=== PATIENT | female | born 1975 | race Two or more races ===

== ENCOUNTER 2023-07-19 14:24 | Outpatient (OUT) | payer BC, SELFPAY ==
--- NOTE | 2023-07-19 | US_ITS ---
The [address] [address] Patient Name: RACHEL KEBEDE MRN: [id number] date: 1975 Sex: F Assigned Patient Location: US Current Patient Location: US Accession/Order Number: [id number] Exam Date: 07/19/2023 14:26 Report Date: 07/19/2023 15:19 At the request of: CHARI DUMONT Procedure: US pelvis w/ transvaginal EXAM: US pelvis w/ transvaginal HISTORY: PELVIC PAIN COMPARISON: None. TECHNIQUE: Real-time transabdominal and transvaginal imaging of the pelvis. Findings: The uterus is not visualized consistent with prior hysterectomy. The right and left ovaries measure 2.4 x 1.8 x 2.6 and 2.7 x 1.8 x 1.5 cm. There are unremarkable bilaterally. No adnexal mass or free pelvic fluid. US/US pelvis w/ transvaginal IMPRESSION: 1. Surgically absent uterus. Electronically authenticated by: DIEGO ALMARAZ Date: 07/19/2023 15:19
== END 2023-07-19 14:25 | disposition home or self-care (01) ==
LOC: US 14:24
PROVIDERS: PCP Family Medicine; Visit Provider Physician Assistant
DX: R10.2 Pelvic and perineal pain (principal)
CPT/HCPCS: 76830; 76856

== ENCOUNTER 2023-11-28 21:09 | Outpatient (REF) | payer BC, SELFPAY ==
[2023-12-01 17:09] LABS: Age Gdln ACOG Testing Note (.); HPV Aptima Negative (Negative); IGP, Aptima HPV, rfx 16/18,45 Note (.)
== END 2023-11-28 21:10 | disposition home or self-care (01) ==
LOC: LAB 21:09
PROVIDERS: PCP Family Medicine; Visit Provider Physician Assistant
DX: Z01.419 Encounter for gynecological examination (general) (routine) without abnormal findings (principal)
CPT/HCPCS: 87624; G0145

== ENCOUNTER 2025-04-25 15:18 | Outpatient (REF) | payer BC, SELFPAY ==
--- OUTSIDE RECORDS SUMMARY | 2025-04-25 14:00 | XMS_ITS | Encounter Summary ---
Author Organization [facility] Address [address] [place] [address] Care Team Providers Care Hospital Nurse Name Role Phone Cruz Anderson MD Primary Care Provider [phone] Cruz Anderson MD Unavailable [phone] Reason for Visit * Reason Comments Well Women Visit Encounter Details Date Type Department Care Team (Late st Contact Info) Description 04/25/2025 2:00 PM EDT Office Visit [facility] [address] [facility] [place] [address] Angelica Ellis PA [address] [place], [facility]11 Well woman exam with routine gynecological exam; Breast cancer screening by mammogram; Postmenopausal state; Encounter for weight management Social History Tobacco Use Types Packs/Day Years Used Date Smoking Tobacco: Never Smokeless Tobacco: Never Alcohol Use Standard Drinks/Week Comments Yes 5 (1 standard drink = 0.6 oz pure alcohol) 1-2 drinks 2-3x a week in the past year, Caffeine intake: 1-2 cups per day B1300 Health Literacy Answer Date Recor ded How often do you need to hav e someone help you when you read instructions, pamphlets, or other written material from your doctor or pharmacy? Never 10/31/2024 Humiliation, Afraid, Rape, and Kick questionnair e Answer Date Recorded Within the last year, have y ou been afraid of your partner or ex-partner? No 09/27/2023 Within the last year, have y ou been humiliated or emotionally abused in other ways by your partner or ex-partner? No Within the last year, have y ou been kicked, hit, slapped, or otherwise physically hurt by your partner or ex-partner? No 09/27/2023 Within the last year, have y ou been raped or forced to have any kind of sexual activity by your partner or ex-partner? No 09/27/2023 Social Connection and Isolat ion Panel [NHANES] Answer Date Recorded In a typical week, how many times do you talk on the phone with family, friends, or neighbors? More than three times a week 10/31/2024 How often do you get togethe r with friends or relatives? More than three times a week 10/31/2024 How often do you attend chur or gnosticism services? Never 10/31/2024 Do you belong to any clubs o r organizations such as baptism groups, unions, fraternal or athletic groups, or school groups? Yes 10/31/2024 How often do you attend meet ings of the clubs or organizations you belong to? More than 4 times per year 10/31/2024 Are you , , di vorced, , never , or living with a partner? 10/31/2024 AUDIT-C Answer Date Recorded Q1: How often do you have a drink containing alc ohol? 2-3 times a week 10/31/2024 Q2: How many drinks containi ng alcohol do you have on a typical day when you are drinking? 1 or 2 10/31/2024 Q3: How often do you have si x or more drinks on one occasion? Less than monthly 10/31/2024 Overall Financial Resource Strain (CARDIA) Answe r Date Recorded How hard is it for you to pa y for the very basics like food, housing, medical care, and heating? Not very hard 10/31/2024 PHQ-2 Answer Date Recorded Patient Health Questionnaire-2 Score 0 01/15/2025 [facility] - Occupational Stress Questionnaire Answer Date Recorded Do you feel stress - tense, restless, nervous, or anxious, or unable to sleep at night because your mind is troubled all the time - these days? To some extent 10/31/2024 Exercise Vital Sign Answer Date Recorde d On average, how many days pe r week do you engage in moderate to strenuous exercise (like a brisk walk)? 3 days 10/31/2024 On average, how many minutes do you engage in exercise at this level? 40 min 10/31/2024 Hunger Vital Sign Answer Date Recorded Within the past 12 months, y ou worried that your food would run out before you got the money to buy more. Never true 10/31/19 25 Within the past 12 months, t he food you bought just didn't last and you didn't have money to get more. Never true 10/31/2024 PRAPARE - Transportation Answer Date Re corded In the past 12 months, has l ack of transportation kept you from medical appointments or from getting medications? No 10/04 In the past 12 months, has l ack of transportation kept you from meetings, work, or from getting things needed for daily living? No 10/31/2024 Housing Stability Vital Sign Answer Jus e Recorded In the last 12 months, was t here a time when you were not able to pay the mortgage or rent on time? No 09/27/2023 In the last 12 months, how many places have you lived? 1 09/27/2023 In the last 12 months, was t here a time when you did not have a steady place to sleep or slept in a senior living (including now)? No 09/27/2023 Housing Stability Vital Sign Answer Jus e Recorded In the last 12 months, was t here a time when you were not able to pay the mortgage or rent on time? No 10/31/2024 Number of Times Moved in the Last Year Not on fi le 10/31/2024 At any time in the past 12 m [facility], were you homeless or living in a senior living (including now)? No 10/31/2024 Comments No Sex and Gender Information Value Date Recorded Sex Assigned at Not on file Legal Sex Female 6:51 PM EDT Gender Identity Not on file Sexual Orientation Straight 03/27/2023 6: 09 PM EDT documented as of this encounter Last Filed Vital Signs Vital Sign Reading Time Taken Comments Blood Pressure 120/78 04/25/2025 2:11 PM EDT Pulse - - Temperature - - Respiratory Rate - - Oxygen Saturation - - Inhaled Oxygen Concentration - - Weight 89.4 kg (197 lb 1.9 oz) 04/25/2025 2:11 P M EDT Height - - Body Mass Index 32.8 01/15/2025 11:26 AM EDT documented in this encounter Progress Notes * EZRA Godoy - 04/25/2025 2:00 PM EDT Reason for Appointment: Patient ID: Octavia Guzman is a 50 y.o. female who presents for [facility] Women Visit Patient presents today for Annual Exam. MEDICATIONS Current Outpatient Medications Medication Instructions llyutiloba-nfmmdlucwkdig-gdoqdjcc 50-325-40 MG tablet 1-2 tabs po daily prn headache meloxicam (MOBIC) 15 mg, Oral, Daily metFORMIN XR (GLUCOPHAGE-XR) 500 mg, Oral, Daily with evening meal, Do not crush, chew, or split. methocarbamol (ROBAXIN) 750 mg, Oral, 3 times daily PRN omeprazole (PRILOSEC) 20 mg, Oral, 2 times daily before meals topiramate (TOPAMAX) 50 mg, Oral, 2 times daily ALLERGIES Allergies Allergen Reactions Augmentin [Amoxicillin-Pot Clavulanate] Other Brunilda vaginitis PROBLEMS Active Ambulatory Problems Diagnosis Date Noted Bilateral hand pain 03/21/2023 Numbness and tingling in both hands 03/21/2023 Carpal tunnel syndrome, bilateral 04/27/2023 Resolved Ambulatory Problems Diagnosis Date Noted No Resolved Ambulatory Problems Past Medical History: Diagnosis Date Arthritis CTS (carpal tunnel syndrome) GERD (gastroesophageal reflux disease) Menorrhagia Obesity Seasonal allergies Tennis elbow HISTORY PAST MEDICAL HISTORY SOCIAL HISTORY Past Medical History: Diagnosis Date Arthritis CTS (carpal tunnel syndrome) GERD (gastroesophageal reflux disease) Menorrhagia Obesity Seasonal allergies Tennis elbow Social History Tobacco Use Smoking status: Never Smokeless tobacco: Never Vaping Use Vaping status: Never Used Substance Use Topics Alcohol use: Yes Alcohol/week: 5.0 standard drinks of alcohol Types: 5 Glasses of wine per week Comment: 1-2 drinks 2-3x a week in the past year, Caffeine intake: 1-2 cups per day Drug use: Never FAMILY HISTORY Family History Problem Relation Name Age of Onset Hypertension Mother [place] Arrhythmia Mother [place] Parkinsonism Father Diabetes Brother Ramon Cancer Maternal Grandmother Tori SURGICAL HISTORY Past Surgical History: Procedure Laterality Date APPENDECTOMY CARPAL TUNNEL RELEASE Right 08/19/2023 Dr. Dylan RAMIREZ CARPAL TUNNEL RELEASE Left 09/02/2023 Dr. Dylan RAMIREZ ENDOMETRIAL ABLATION 06/22/2022 HAND SURGERY Left 09/19/2024 L basilar thumb interpositional arhtroplasty- MTP HYSTERECTOMY 11/03/2022 MOUTH SURGERY Implant put in mouth SALPINGECTOMY Bilateral 07/02/2022 REVIEW OF SYSTEMS Review of Systems: Review of Systems Constitutional: Negative. HENT: Negative. Eyes: Negative. Respiratory: Negative. Cardiovascular: Negative. Gastrointestinal: Negative. Genitourinary: Negative. Musculoskeletal: Negative. Skin: Negative. Neurological: Negative. All other systems reviewed and are negative. Hematological: Negative. Endocrine: Negative. Allergic/Immunologic: Negative. OBJECTIVE Objective: Physical Exam Constitutional: Appearance: Normal appearance. Genitourinary: Right Adnexa: not tender and no mass present. Left Adnexa: not tender and no mass present. Cervix is absent. Uterus is absent. Breasts: Breasts are soft. Right: Normal. Left: Normal. HENT: Head: Normocephalic. Nose: Nose normal. Mouth/Throat: Mouth: Mucous membranes are moist. Cardiovascular: Rate and Rhythm: Normal rate. Pulmonary: Effort: Pulmonary effort is normal. Abdominal: General: Bowel sounds are normal. Palpations: Abdomen is soft. Musculoskeletal: General: Normal range of motion. Cervical back: Normal range of motion. Neurological: General: No focal deficit present. Mental Status: She is alert. Skin: General: Skin is warm and dry. Psychiatric: Mood and Affect: Mood normal. Vitals and nursing note reviewed. Exam conducted with a profiling machine set up operator present. Vitals: Estimated body mass index is 32.8 kg/m?? as calculated from the following: Height as of 01/15/25: 5' 5 . Weight as of this encounter: 197 lb 1.9 oz. BP: 120/78 No LMP recorded. Patient has had a hysterectomy. ASSESSMENT & PLAN ICD-10-CM 1. Well woman exam with routine gynecological exam Z01.419 THIN PREP TIS PAP AND HR HPV DNA 2. Breast cancer screening by mammogram Z12.31 Bilateral screening mammogram Bilateral screening mammogram 3. Postmenopausal state Z78.0 DEXA bone density 4. Encounter for weight management Z76.89 metFORMIN XR (Glucophage-XR) 500 MG 24 hr tablet Documented by EZRA Godoy on behalf of: EZRA Godoy documented in this encounter Plan of Treatment Upcoming Encounters Date Type Department Care Team (Late st Contact Info) Description 05/16/2025 8:30 AM EDT Office Visit [facility] [address] [place] [address] Angelica Ellis PA [address] [place] [address] Scheduled Orders Name Type Priority Associated Diagnoses Orde r Schedule Bilateral screening mammogram Imaging Routine Breast cancer screening by mammogram Expected: 04/25/2025, Expires: 06/26/2026 DEXA bone density Imaging Routine Postmenopausal state Expected: 04/25/2025 (Approximate), Expires: 04/25/2026 THIN PREP TIS PAP AND HR HPV DNA Pathology and Cytology Routine Well woman exam with routine gynecological exam Ordered: 04/25/2025 documented as of this encounter Visit Diagnoses Diagnosis Well woman exam with routine gynecological exam Routine gynecological examination Breast cancer screening by mammogram Postmenopausal state Asymptomatic postmenopausal status (age-related) (natural) Encounter for weight management documented in this encounter Care Teams Hospital Nurse Relationship Specialty Start Date End Date Cruz Anderson MD [address] [place] [address] PCP - General Family Medicine 03/18/23 Cruz Anderson MD [address] [place] [address] PCP - Diane Leal 12/01/24 documented as of this encounter
--- OUTSIDE RECORDS SUMMARY | 2025-04-25 15:22 | XMS_ITS | Encounter Summary ---
Author Organization [facility] Address [address] [facility] [place] [address] Care Team Providers Care Guest Relations Receptionist Name Role Phone Estefania Blackwell NP Unavailable Cruz Anderson MD Primary Care Provider Cruz Anderson MD Unavailable [phone] Cruz Anderson MD Unavailable [phone] Encounter Details Date Type Department Care Team (Late st Contact Info) Description 07/29/2023 Abstract [facility] [address] [facility] [address] [place] [address] Dylan Bates, DO [address] [facility] [place] [address] Social History Tobacco Use Types Packs/Day Years Used Date Smoking Tobacco: Never Smokeless Tobacco: Never Alcohol Use Standard Drinks/Week Comments Yes 5 (1 standard drink = 0.6 oz pure alcohol) 1-2 drinks 2-3x a week in the past year, Caffeine intake: 1-2 cups per day Comments Unknown Sex and Gender Information Value Date Recorded Sex Assigned at Not on file Legal Sex Female 6:51 PM EDT Gender Identity Not on file Sexual Orientation Straight 03/27/2023 6: 09 PM EDT COVID-19 Exposure Response Date Recorded In the last 10 days, have yo u been in contact with someone who was confirmed or suspected to have Coronavirus/COVID-19? No / Unsure 07/28/2023 10:10 AM EDT documented as of this encounter Plan of Treatment Upcoming Encounters Date Type Department Care Team (Late st Contact Info) Description 05/16/2025 8:30 AM EDT Office Visit [facility] OB [address] [facility] [place] [address] Angelica Ellis PA [address] [place] [address] documented as of this encounter Visit Diagnoses Not on filedocumented in this encounter Care Teams Guest Relations Receptionist Relationship Specialty Start Date End Date Estefania Blackwell, BREAKER OPERATOR [address] [place] [address] PCP - [employer] [employer] 01/01/22 Cruz Anderson MD [address] [place] [address] PCP - General Family Medicine 03/18/23 Cruz Anderson MD [address] [place] [address] PCP - [employer] 12/02/23 Cruz Anderson MD [address] [place] [address] PCP - [employer] 12/01/24 documented as of this encounter
--- OUTSIDE RECORDS SUMMARY | 2025-04-25 15:22 | XMS_ITS | Encounter Summary ---
Author Organization [facility] Address [address] [facility] [place] [address] Care Team Providers Care Production Machine Shop Supervisor Name Role Phone Estefania Blackwell NP Unavailable [phone] Cruz Anderson MD Primary Care Provider Cruz Anderson MD Unavailable [phone] Cruz Anderson MD Unavailable [phone] Encounter Details Date Type Department Care Team (Late st Contact Info) Description 09/23/2023 Abstract [facility] [address] [place] [id number] Madison Miranda RN [address] [place], [place] Social History Tobacco Use Types Packs/Day Years Used Date Smoking Tobacco: Never Smokeless Tobacco: Never Alcohol Use Standard Drinks/Week Comments Yes 5 (1 standard drink = 0.6 oz pure alcohol) 1-2 drinks 2-3x a week in the past year, Caffeine intake: 1-2 cups per day Humiliation, Afraid, Rape, and Kick questionnair e [...] neighbors? More than three times a week 09/27/2023 How often do you get togethe r with friends or relatives? More than three times a week 09/27/2023 How often do you attend chur or mandaen services? Never 09/27/2023 Do you belong to any clubs o r organizations such as mosque groups, unions, fraternal or athletic groups, or school groups? Yes 09/27/2023 How often do you attend meet ings of the clubs or organizations you belong to? 1 to 4 times per year 09/27/2023 Are you , , di vorced, , never , or living with a partner? 09/27/2023 AUDIT-C Answer Date Recorded Q1: How often do you have a drink containing alc ohol? 2-4 times a month 09/27/2023 Q2: How many drinks containi ng alcohol do you have on a typical day when you are drinking? 3 or 4 09/27/2023 Q3: How often do you have si x or more drinks on one occasion? Less than monthly 09/27/2023 Overall Financial Resource Strain (CARDIA) Answe r Date Recorded How hard is it for you to pa y for the very basics like food, housing, medical care, and heating? Not very hard 09/27/2023 [facility] - Occupational Stress Questionnaire Answer Date Recorded Do you feel stress - tense, restless, nervous, or anxious, or unable to sleep at night because your mind is troubled all the time - these days? Not at all 09/27/2023 Exercise Vital Sign Answer Date Recorde d On average, how many days pe r week do you engage in moderate to strenuous exercise (like a brisk walk)? 0 days 09/27/2023 On average, how many minutes do you engage in exercise at this level? 0 min 09/27/2023 Hunger Vital Sign Answer Date Recorded Within the past 12 months, y ou worried that your food would run out before you got the money to buy more. Never true 09/27/20 23 Within the past 12 months, t he food you bought just didn't last and you didn't have money to get more. Never true 09/27/2023 PRAPARE - Transportation Answer Date Re corded In the past 12 months, has l ack of transportation kept you from medical appointments or from getting medications? No 09/03 In the past 12 months, has l ack of transportation kept you from meetings, work, or from getting things needed for daily living? No 09/27/2023 Housing Stability Vital Sign Answer [...] place to sleep or slept in a retirement (including now)? No 09/27/2023 Comments Unknown Sex and Gender Information Value Date Recorded Sex Assigned at Not on file Legal Sex Female 6:51 PM EDT Gender Identity Not on file Sexual Orientation Straight 03/27/2023 6: 09 PM EDT documented as of this encounter Plan of Treatment Upcoming Encounters Date Type Department Care Team (Late st Contact Info) Description 05/16/2025 8:30 AM EDT Office Visit [facility] OB [address] [facility] [place] [address] Angelica Ellis PA [address] [facility] [address] [place], [place] [id number] documented as of this encounter Visit Diagnoses Not on filedocumented in this encounter Care Teams Production Machine Shop Supervisor Relationship Specialty Start Date End Date Estefania Blackwell NP [address] [place] [address] PCP - [place] [employer] 01/01/22 Cruz Anderson MD [address] [place] [address] PCP - General Family Medicine 03/18/23 Cruz Anderson MD [address] [place] [address] PCP - [place] [employer] 12/02/23 Cruz Anderson MD [address] [place] [address] PCP - [place] [employer] 12/01/24 documented as of this encounter
--- OUTSIDE RECORDS SUMMARY | 2025-04-25 15:22 | XMS_ITS | Encounter Summary ---
Author Organization [facility] Address [address] [facility] [place] [address] Care Team Providers Care Industrial Registered Nurse Name Role Phone Cruz Anderson MD Primary Care Provider Cruz Anderson MD Unavailable [phone] Encounter Details Date Type Department Care Team (Latest Contact Info) Description 04/25/2025 Travel Social History Tobacco Use Types Packs/Day Years [...] 10/31/2024 How often do you attend chur ch or christianity services? Never 10/31/2024 Do you belong to any clubs o r organizations such as protestant groups, unions, fraternal or athletic groups, or [...] Recorded Patient Health Questionnaire-2 Score 0 01/15/2025 [facility] Questionnaire Answer Date Recorded [...] place to sleep or slept in a jail (including now)? No 09/27/2023 Housing Stability Vital Sign Answer Jus e Recorded In the last 12 months, was t here a time when you were not able to pay the mortgage or rent on time? No 10/31/2024 Number of Times Moved in the Last Year Not on fi le 10/31/2024 At any time in the past 12 m [facility], were you homeless or living in a jail (including now)? No 10/31/2024 Comments No Sex [...] EDT Office Visit [facility] [address] [facility] [place] [address] Angelica Ellis PA [address] [facility] [place] [address] documented as of this encounter Visit Diagnoses Not on filedocumented in this encounter Care Teams Industrial Registered Nurse Relationship Specialty Start Date End Date Cruz Anderson MD [address] [place] [address] PCP - General Family Medicine 03/18/23 Cruz Anderson MD [address] [place] [address] PCP - [place] [employer] 12/01/24 documented as of this encounter
--- OUTSIDE RECORDS SUMMARY | 2025-04-25 15:22 | XMS_ITS | Encounter Summary ---
Author Organization [facility] Address [address] [facility] [place] [address] Care Team Providers Care Guest Relations Associate Name Role Phone Estefania Blackwell NP Unavailable Cruz Anderson MD Primary Care Provider [phone] Cruz Anderson MD Unavailable [phone] Cruz Anderson MD Unavailable [phone] Encounter Details Date Type Department Care Team (Late st Contact Info) Description 03/25/2023 Abstract [facility] [address] [place] [address] Deborah Sharma ARRT Social History Tobacco Use Types Packs/Day Years Used Date Smoking Tobacco: Never Smokeless Tobacco: Never Alcohol Use Standard Drinks/Week Comments Yes 0 (1 standard drink = 0.6 oz pur e alcohol) Comments Unknown Sex and Gender Information Value [...] EDT Office Visit [facility] OB [address] [facility] [place] [address] Angelica Ellis PA [address] [facility] [place] [address] documented as of this encounter Visit Diagnoses Not on filedocumented in this encounter Care Teams Guest Relations Associate Relationship Specialty Start Date End Date Estefania Blackwell NP [address] [place] [address] PCP - [place] [employer] 01/01/22 Cruz Anderson MD [address] [place] [address] PCP - General Family Medicine 03/18/23 Cruz Anderson MD [address] [place] [address] PCP - [place] [employer] 12/02/23 Cruz Anderson MD [address] [place] [address] PCP - [place] [employer] 12/01/24 documented as of this encounter
--- OUTSIDE RECORDS SUMMARY | 2025-04-25 15:22 | XMS_ITS | Encounter Summary ---
Author Organization [facility] Address [address] [place] [address] Care Team Providers Care Research And Development Manager Name Role Phone Cruz Anderson MD Primary Care Provider [phone] Cruz Anderson MD Unavailable [phone] Encounter Details Date Type Department Care Team (Late st Contact Info) Description 09/13/2024 Orders Only [facility] [address] [place] [phone] Dylan Bates, [address] [place] [address] Bilateral hand pain (Primary Dx) Social History Tobacco Use Types Packs/Day Years [...] How often do you attend chur or restoration services? Never 09/27/2023 Do you belong to any clubs o r organizations such as spiritism groups, unions, fraternal or athletic groups, or [...] care, and heating? Not very hard 09/27/2023 [facility] - Occupational Stress Questionnaire Answer Date [...] money to buy more. Never true 09/27/20 Within the past 12 months, t he [...] place to sleep or slept in a fdc (including now)? No 09/27/2023 Comments No Sex and Gender Information Value Date Recorded Sex Assigned at Not on file Legal Sex Female 6:51 PM EDT Gender Identity Not on file Sexual Orientation Straight 03/27/2023 6 :09 PM EDT documented as of this encounter Plan of Treatment Upcoming Encounters Date Type Department Care Team (Late st Contact Info) Description 05/16/2025 8:30 AM EDT Office Visit [facility] [address] [facility] [place] [address] Angelica Ellis PA [address] [facility] [place] [address] documented as of this encounter Visit Diagnoses Diagnosis Bilateral hand pain- Primary documented in this encounter Care Teams Research And Development Manager Relationship Specialty Start Date End Date Cruz Anderson MD [address] [place] [address] PCP - General Family Medicine 03/18/23 Cruz Anderson MD [address] [place] [address] PCP - [place] [employer] 12/01/24 documented as of this encounter
--- OUTSIDE RECORDS SUMMARY | 2025-04-25 15:22 | XMS_ITS | Encounter Summary ---
Author Organization [facility] Address [address] [facility] [place] [address] Care Team Providers Care Solid Waste Landfill Technician Name Role Phone Cruz Anderson MD Primary Care Provider Cruz Anderson MD Unavailable [phone] Encounter Details Date Type Department Care Team (Late st Contact Info) Description 04/25/2025 Bamboo flowsheet [facility] [address] [place] [address] Angelica Ellis PA [address] [facility] [address] [place], [facility] Social History Tobacco Use Types Packs/Day Years [...] How often do you attend chur or mormonism services? Never 10/31/2024 Do you belong to any clubs o r organizations such as synagogue groups, unions, fraternal or athletic groups, or [...] Recorded Patient Health Questionnaire-2 Score 0 01/15/2025 [facility] [place] of Occupat ional Health - Occupational Stress [...] place to sleep or slept in a [place] health care facility (including now)? No 09/27/2023 Housing Stability Vital Sign Answer Jus e Recorded In the last 12 months, was t here a time when you were not able to pay the mortgage or rent on time? No 10/31/2024 Number of Times Moved in the Last Year Not on fi le 10/31/2024 At any time in the past 12 m [facility], were you homeless or living in a [place] health care facility (including now)? No 10/31/2024 Comments No Sex [...] EDT Office Visit [facility] [address] [place] [place] [address] Angelica Ellis PA [address] [place] [address] documented as of this encounter Visit Diagnoses Not on filedocumented in this encounter Care Teams Solid Waste Landfill Technician Relationship Specialty Start Date End Date Cruz Anderson MD [address] [place] [address] PCP - General Family Medicine 03/18/23 Cruz Anderson MD [address] [place] [address] PCP - Diane Leal 12/01/24 documented as of this encounter
--- OUTSIDE RECORDS SUMMARY | 2025-04-25 15:22 | XMS_ITS | Encounter Summary ---
Author Organization [facility] Address [address] [facility] [place] [address] Care Team Providers Care Aircraft Pilot Name Role Phone Estefania Blackwell NP Unavailable [phone] Cruz Anderson MD Primary Care Provider Cruz Anderson MD Unavailable [phone] Cruz Anderson MD Unavailable [phone] Encounter Details Date Type Department Care Team (Late st Contact Info) Description 08/04/2023 Abstract [facility] POD [address] [place] [address] Abraham Rios, DPM FACFAS [address] [place], [place] [id number] Social History Tobacco Use Types Packs/Day Years [...] Office Visit [facility] OB [address] [facility] [place] [address] Angelica Ellis PA [address] [facility] [place] [address] documented as of this encounter Visit Diagnoses Not on filedocumented in this encounter Care Teams Aircraft Pilot Relationship Specialty Start Date End Date Estefania Blackwell, DIRECTOR OF PROVIDER RELATIONS [address] [place] [address] PCP - [place] [employer] 01/01/22 Cruz Anderson MD [address] [place] [address] PCP - General Family Medicine 03/18/23 Cruz Anderson MD [address] [place] [address] PCP - [place] [employer] 12/02/23 Cruz Anderson MD [address] [place] [address] PCP - [place] [employer] 12/01/24 documented as of this encounter
--- OUTSIDE RECORDS SUMMARY | 2025-04-25 15:22 | XMS_ITS | Encounter Summary ---
Author Organization [facility] Address [address] [facility] [place] [address] Care Team Providers Care User Experience Researcher Name Role Phone Esteafnia Blackwell NP Unavailable [phone] Cory Rothman MD Primary Care Provider [phone] Cory Rothman MD Unavailable [phone] Cory Rothman MD Unavailable [phone] Encounter Details Date Type Department Care Team (Late Contact Info) Description 07/19/2023 Clinisync Result Encounter [facility] External Department Unsolicited Provider, Generic External Data Social History Tobacco Use Types Packs/Day Years Used Date Smoking Tobacco: Never Smokeless Tobacco: Never Alcohol Use Standard Drinks/Week Comments Yes 0 (1 standard drink = 0.6 oz pure [...] suspected to have Coronavirus/COVID-19? No / Unsure 07/11/2023 11:15 AM EDT documented as of this encounter Plan of Treatment Upcoming Encounters Date Type Department Care Team ([facility] Contact Info) Description 05/16/2025 8:30 AM EDT Office Visit [facility] OB [address] [place] [address] [place] [address] Angelica Dumont PA [address] [place] [address] [place] [address] documented as of this encounter Procedures Procedure Name Priority Date/Time Associated Diagnosis Comments US PELVIS W/ TRANSVAGINAL 07/19/2023 3:19 PM EDT documented in this encounter Results * US PELVIS W/ TRANSVAGINAL (07/19/2023 3:19 PM EDT) Anatomical Region Laterality Modality Other 07/19/2023 3:19 PM EDT Narrative 07/19/2023 3:19 PM EDT [address] [address] Ultrasound Report Signed Patient: Rachel Guzman MR#: [id number] : 1975 Acct:[id number] Age/Sex: 48 / F ADM Date: 07/19/23 Loc: US Attending Dr: Angelica Dumont Ordering Physician: Angelica Dumont Date of Service: 07/19/23 Procedure(s): US pelvis w/ transvaginal Accession Number(s): [id number] cc: Angelica Dumont; CORY ROTHMAN [address] [address] Patient Name: RACHEL GUZMAN MRN: [id number] date: 1975 Sex: F Assigned Patient Location: US Current Patient Location: US Accession/Order Number: [id number] Exam Date: 07/19/2023 14:26 Report Date: 07/19/2023 15:19 At the request of: ANGELICA DUMONT Procedure: US pelvis w/ transvaginal EXAM: US pelvis w/ transvaginal HISTORY: PELVIC PAIN COMPARISON: None. TECHNIQUE: Real-time transabdominal and transvaginal imaging of the pelvis. Findings: The uterus is not visualized consistent with prior hysterectomy. The right and left ovaries measure 2.4 x 1.8 x 2.6 and 2.7 x 1.8 x 1.5 cm. There are unremarkable bilaterally. No adnexal mass or free pelvic fluid. US/US pelvis w/ transvaginal IMPRESSION: 1. Surgically absent uterus. Electronically authenticated by: DIEGO SCHNEIDER Date: 07/19/2023 15:19 Dictated By: Diego Schneider M.D. Signed By: 07/19/23 1521 DD/ 1519 TD/TT: Biodiesel Process Control Technician: Procedure Note Radiology, Radiologist, MD - 07/19/2023 [place] [address] Ultrasound Report Signed Patient: Rachel Guzman FMR#: [id number] : 1975Acct:[id number] Age/Sex: 48 / FADM Date: 07/19/23 Loc: US Attending Dr: Angelica Dumont Ordering Physician: Angelica Dumont Date of Service: 07/19/23 Procedure(s): US pelvis w/ transvaginal Accession Number(s): [id number] cc: CORY Carmona [place] [address] Patient Name: RACHEL GUZMAN MRN: [id number] date: 1975 Sex: F Assigned Patient Location: US Current Patient Location: US Accession/Order Number: [id number] Exam Date: 07/19/2023 14:26 Report Date: 07/19/2023 15:19 At the request of: ANGELICA DUMONT Procedure: US pelvis w/ transvaginal EXAM: US pelvis w/ transvaginal HISTORY: PELVIC PAIN COMPARISON: None. TECHNIQUE: Real-time transabdominal and transvaginal imaging of thepelvis. Findings: The uterus is not visualized consistent with prior hysterectomy. The right and left ovaries measure 2.4 x 1.8 x 2.6 and 2.7 x 1.8 x 1.5 cm. There are unremarkable bilaterally. No adnexal mass or free pelvic fluid. US/US pelvis w/ transvaginal IMPRESSION: 1. Surgically absent uterus. Electronically authenticated by: DIEGO SCHNEIDER Date: 07/19/2023 15:19 Dictated By: Diego Schneider M.D. Signed By:07/19/23 1521 DD/ 1519 TD/TT: Biodiesel Process Control Technician: us Generic External Data Provider [facility] Final Result documented in this encounter Visit Diagnoses Not on filedocumented in this encounter Care Teams User Experience Researcher Relationship Specialty Start Date End Date Estefania Blackwell EARTH MOVING MACHINE OPERATOR [address] [place] [address] PCP - [place] [employer] 01/01/22 Cory Rothman MD [address] [place] [address] PCP - General Family Medicine 03/18/23 Cory Rothman MD [address] [place] [address] PCP - [place] [employer] 12/02/23 Cory Rothman MD [address] [place] [address] PCP - [place] [employer] 12/01/24 documented as of this encounter
--- OUTSIDE RECORDS SUMMARY | 2025-04-25 15:22 | XMS_ITS | Clinical Summary ---
Author Organization [facility] Address [address] [place] [place] [address] Care Team Providers Care Pi/Senior Research Associate Name Role Phone Cruz Anderson MD Primary Care Provider [phone] Cruz Anderson MD Unavailable [phone] Allergies Active Allergy Reactions Criticality Noted Date Comments Amoxicillin-Pot Clavulanate Other 11/30/19 25 Brunilda vaginitis Medications methocarbamol (Robaxin) 750 MG tabletIndication s:Muscle pain Take 1 tablet (750 mg) by mouth 3 (three) times a day as needed for muscle spasms (Pain) 20 tablet 4 Active Additional Information Patient not taking.Reported on 04/25/2025 butalbital-aceta minophen-caffein e 50-325-40 MG tabletIndication s:Chronic migraine w/o aura w/o status migrainosus, not intractable 1-2 tabs po daily prn headache 60 tablet 4 Active topiramate (Topamax) 50 MG tabletIndication s:Chronic migraine w/o aura w/o status migrainosus, not intractable Take 50 mg by mouth in the morning and 50 mg before bedtime. 180 tablet 3 5 11/30/19 26 Active meloxicam (Mobic) 15 MG tabletIndication s:Bilateral hand pain Take 1 tablet (15 mg) by mouth Daily 90 tablet 2 5 11/30/19 26 Active omeprazole (PriLOSEC) [address] capsuleIndicatio ns:Gastroesophag eal reflux disease without esophagitis Take 1 capsule (20 mg) by mouth in the morning and 1 capsule (20 mg) in the evening. Take before meals. 180 capsule 1 5 Active metFORMIN XR (Glucophage-XR) 500 MG 24 hr tabletIndication s:Encounter for weight management Take 1 tablet (500 mg) by mouth in the evening. Take with meals Do not crush, chew, or split. 30 tablet 11 5 05/25/20 25 Active Active Problems Problem Noted Date Diagnosed Date Carpal tunnel syndrome, bilateral 04/27/2023 Bilateral hand pain 03/21/2023 Numbness and tingling in both hands 03/21/2023 Encounters Date Type Department Care Team Description 04/25/2025 2:00 PM EDT Office Visit [facility] OB [address] [place] [address] [place] [address] Angelica Ellis PA Well woman exam with routine gynecological exam; Breast cancer screening by mammogram; Postmenopausal state; Encounter for weight management 04/25/2025 Bamboo flowsheet [facility] OB [address] [facility] [place] [address] Angelica Ellis PA 04/25/2025 Travel from Last 3 Months Family History Medical History Relation Name Comments Diabetes Brother Ramon Parkinsonism Father Cancer Maternal Grandmother Tori Arrhythmia Mother [place] Hypertension Mother [place] Relation Name Status Comments Brother Ramon 2 Daughter 1 Father Alive Maternal Grandfather Maternal Grandmother Tori Mother [place] Alive Paternal Grandfather Paternal Grandmother Sister 1 Son 1 Social History Tobacco Use Types Packs/Day Years Used Date Smoking Tobacco: Never Smokeless Tobacco: Never Tobacco Cessation:Counseling Given: Not Answered Alcohol Use Standard Drinks/Week Comments Yes 5 [...] week 10/31/2024 How often do you attend [facility] or rastafari services? Never 10/31/2024 Do you belong to [...] Recorded Patient Health Questionnaire-2 Score 0 01/15/2025 [facility] [place] of Occupat ional Health - Occupational Stress [...] place to sleep or slept in a skilled nursing (including now)? No 09/27/2023 Housing Stability Vital Sign Answer Jus e Recorded In the last 12 months, was t here a time when you were not able to pay the mortgage or rent on time? No 10/31/2024 Number of Times Moved in the Last Year Not on fi le 10/31/2024 At any time in the past 12 m [facility], were you homeless or living in a skilled nursing (including now)? No 10/31/2024 Comments No Sex and Gender Information Value Date Recorded Sex Assigned at Not on file Legal Sex Female 6:51 PM EDT Gender Identity Not on file Sexual Orientation Straight 03/27/2023 6: 09 PM EDT Last Filed Vital Signs Vital Sign Reading Time Taken Comments Blood Pressure 120/78 04/25/2025 2:11 PM EDT Pulse 83 01/15/2025 11:26 AM EDT Temperature 36.7 C (98.1 F) 01/15/2025 11:26 AM EDT Respiratory Rate - - Oxygen Saturation 99% 01/15/2025 11:26 AM EDT Inhaled Oxygen Concentration - - Weight 89.4 kg (197 lb 1.9 oz) 04/25/2025 2:11 P M EDT Height 165.1 cm (5' 5 ) 01/15/2025 11:26 AM EDT Body Mass Index 32.8 01/15/2025 11:26 AM EDT Plan of Treatment Upcoming Encounters Date Type Department Care Team (Late st Contact Info) Description 05/16/2025 8:30 AM EDT Office Visit [facility] OB [address] [facility] [phone] Angelica Ellis PA [address] [facility] [address] [place], [place] [address] Health Maintenance Due Date Last Done Comments CT Colonography 1975 FIT-DNA 1975 FIT 1975 FOBT 1975 Sigmoidoscopy 1975 Mammogram 01/19/2025 01/20/2024, 01/01, 10/08/2019, Additional history exists Influenza Vaccine (#1) 2025 Colonoscopy 08/31/2032 08/31/2022, 08/31/2022 Colorectal Cancer Screening 08/31/2032 Cervical Cancer Screening Discontinued Pap Smear Discontinued 11/28/2023 HPV/Cotest Discontinued Procedures Procedure Name Priority Date/Time Associated Diagnosis Comments BI MAMMOGRAM SCREENING BILATERAL Routine 01/20/2024 9:18 AM EDT Breast cancer screening by mammogram PAP SMEAR Routine 11/28/2023 12:00 AM EST from Last 3 Months or Most Recently Relevant to Health Maintenance Results * Bilateral screening mammogram (01/20/2024 9:18 AM EDT) Angelica MUNGUIA IMG BI PROCEDURES Final Result [facility] [address] [place] [address], * Pap Smear (11/28/2023 12:00 AM EST) Swab Cervical swab / Unknown Mitzy Nurse [facility] Ob LAB CYTOLOGY ORDERABLES Final Result EXTERNAL LAB from Last 3 Months or Most Recently Relevant to Health Maintenance Insurance [employer] Care Teams Pi/Senior Research Associate Relationship Specialty Start Date End Date Cruz Anderson MD [address] [place] [address] PCP - General Family Medicine 03/18/23 Cruz Anderson MD [address] [place] [address] PCP - [place] [employer] 12/01/24
--- OUTSIDE RECORDS SUMMARY | 2025-04-25 15:22 | XMS_ITS | Encounter Summary ---
Author Organization [facility] Address [address] [facility] [place] [address] Care Team Providers Care Insurance Manager Name Role Phone Cruz Anderson MD Primary Care Provider [phone] Cruz Anderson MD Unavailable [phone] Encounter Details Date Type Department Care Team (Late st Contact Info) Description 09/19/2024 Abstract [facility] ORTHO [address] [place] [address] Dylan Bates DO [address] [place] [address] Social History Tobacco Use Types Packs/Day Years [...] How often do you attend chur or taoism services? Never 09/27/2023 Do you belong to any clubs o r organizations such as sikh groups, unions, fraternal or athletic groups, or [...] care, and heating? Not very hard 09/27/2023 [facility] of Occupat iontn Health - Occupational Stress Questionnaire Answer Date [...] place to sleep or slept in a custodial (including now)? No 09/27/2023 Comments No Sex [...] EDT Office Visit [facility] B[facility] OB [address] [facility] [place] [address] Angelica Ellis PA [address] [facility] [place] [address] documented as of this encounter Visit Diagnoses Not on filedocumented in this encounter Care Teams Insurance Manager Relationship Specialty Start Date End Date Cruz Anderson MD [address] [place] [address] PCP - General Family Medicine 03/18/23 Cruz Anderson MD [address] [place] [address] PCP - [place] [employer] 12/01/24 documented as of this encounter
--- OUTSIDE RECORDS SUMMARY | 2025-04-25 15:22 | XMS_ITS | Encounter Summary ---
Author Organization [facility] Address [address] [facility] [place] [address] Care Team Providers Care Mold Burner Name Role Phone Estefania Blackwell NP Unavailable Cruz Anderson MD Primary Care Provider Cruz Anderson MD Unavailable [phone] Cruz Anderson MD Unavailable [phone] Encounter Details Date Type Department Care Team (Late st Contact Info) Description 08/28/2023 Orders Only [facility] ORTHO [address] [facility] [address] [place] [address] Dylan Bates, DO [address] [facility] [place] [address] Carpal tunnel syndrome, bilateral (Primary Dx) Social History Tobacco Use Types [...] suspected to have Coronavirus/COVID-19? No / Unsure 08/23/2023 11:47 AM EST documented as of this encounter Plan of Treatment Upcoming Encounters Date Type Department Care Team (Late st Contact Info) Description 05/16/2025 8:30 AM EDT Office Visit [facility] OB [address] [facility] [place] [address] Angelica Ellis PA [address] [facility] [place] [address] documented as of this encounter Visit Diagnoses Diagnosis Carpal tunnel syndrome, bilateral- Primary Carpal tunnel syndrome documented in this encounter Care Teams Mold Burner Relationship Specialty Start Date End Date Estefania Blackwell NP [address] [place] [address] PCP - [place] [employer] 01/01/22 Cruz Anderson MD [address] [place] [address] PCP - General Family Medicine 03/18/23 Cruz Anderson MD [address] [place] [address] PCP - [place] [employer] 12/02/23 Cruz Anderson MD [address] [place] [address] PCP - [place] [employer] 12/01/24 documented as of this encounter
--- OUTSIDE RECORDS SUMMARY | 2025-04-25 15:22 | XMS_ITS | Encounter Summary ---
Author Organization [facility] Address [address] [facility] [place] [address] Care Team Providers Care Community Placement Worker Name Role Phone Estefania Blackwell NP Unavailable Cruz Anderson MD Primary Care Provider [phone] Cruz Anderson MD Unavailable [phone] Cruz Anderson MD Unavailable [phone] Encounter Details Date Type Department Care Team (Late st Contact Info) Description 09/20/2023 Abstract [facility] ORTHO [address] [facility] [address] [place] [address] Dylan Bates, DO [address] [facility] [place] [address] Social History Tobacco Use Types Packs/Day Years [...] EDT Office Visit [facility] B[facility] OB [address] [place] [address] Angelica Ellis PA [address] [facility] [place] [address] documented as of this encounter Visit Diagnoses Not on filedocumented in this encounter Care Teams Community Placement Worker Relationship Specialty Start Date End Date Estefania Blackwell, SPLICING TECHNICIAN [address] [place] [address] PCP - [place] [employer] 01/01/22 Cruz Anderson MD [address] [place] [address] PCP - General Family Medicine 03/18/23 Cruz Anderson MD [address] [place] [address] PCP - [place] [employer] 12/02/23 Cruz Anderson MD [address] [place] [address] PCP - [place] [employer] 12/01/24 documented as of this encounter
--- OUTSIDE RECORDS SUMMARY | 2025-04-25 15:22 | XMS_ITS | Encounter Summary ---
Author Organization [facility] Address [address] [facility] [place] [address] Care Team Providers Care Cable Tool Operator Name Role Phone Estefania Blackwell NP Unavailable Cruz Anderson MD Primary Care Provider [phone] Cruz Anderson MD Unavailable [phone] Cruz Anderson MD Unavailable [phone] Encounter Details Date Type Department Care Team (Late st Contact Info) Description 08/15/2023 Orders Only [facility] ORTHO [address] [facility] [address] [place] [address] Dylan Bates, DO [address] [place] [address] Carpal tunnel syndrome, bilateral (Primary Dx) Social [...] EDT Office Visit [facility] BCP OB [address] [facility] [address] Angelica Ellis PA [address] [facility] [place] [place] [address] documented as of this encounter Visit Diagnoses Diagnosis Carpal tunnel syndrome, bilateral- Primary Carpal tunnel syndrome documented in this encounter Care Teams Cable Tool Operator Relationship Specialty Start Date End Date Estefania Blackwell NP [address] [place] [address] PCP - [place] [employer] 01/01/22 Cruz Anderson MD [address] [place] [address] PCP - General Family Medicine 03/18/23 Cruz Anderson MD [address] [place] [address] PCP - [place] [employer] 12/02/23 Cruz Anderson MD [address] [place] [address] PCP - [place] [employer] 12/01/24 documented as of this encounter
[2025-04-29 11:11] LABS: Age Gdln ACOG Testing Note (.); IGP, Aptima HPV, rfx 16/18,45 Note (.)
== END 2025-04-25 15:19 | disposition home or self-care (01) ==
LOC: LAB 15:18
PROVIDERS: PCP Family Medicine; Visit Provider Physician Assistant
DX: Z01.419 Encounter for gynecological examination (general) (routine) without abnormal findings (principal)
CPT/HCPCS: 87624; 88175